=== PATIENT | female | born 1970 | race Caucasian/White ===

== ENCOUNTER 2017-10-25 22:00 | Emergency (ER) | payer BC ==
[2017-10-25] MEDS: HYDROCODONE/APAP (5/325) TAB PO (23:01)
[2017-10-25] MEDS: DIPHTH/TET/ACEL PERTUSS (ADULT) 0.5 ML VIAL IM (23:03)
== END 2017-10-26 00:48 | disposition home or self-care (01) ==
LOC: FTE 10-26 00:48
DX: S01.01XA Laceration without foreign body of scalp, initial encounter (principal); W19.XXXA Unspecified fall, initial encounter; Y92.9 Unspecified place or not applicable
CPT/HCPCS: 12001; 70450; 90471; 90715; 99284-25

== ENCOUNTER 2017-10-27 09:16 | Emergency (ER) | payer BC | END 2017-10-27 10:51 | disposition home or self-care (01) | LOC: FTE 09:16 | DX: Z48.01 Encounter for change or removal of surgical wound dressing (principal) | CPT/HCPCS: 99281; Z7502 ==

== ENCOUNTER 2017-11-03 15:17 | Emergency (ER) | payer BC | END 2017-11-03 15:55 | disposition home or self-care (01) | LOC: E/R 15:55 | DX: Z48.02 Encounter for removal of sutures (principal) | CPT/HCPCS: 99281; Z7502 ==

== ENCOUNTER 2018-12-16 08:39 | Day surgery (SDC) | payer BC ==
[2018-12-16] MEDS ORDERED: LIDOCAINE 4% SOLUTION 50 ML BTL (10:08)
[2018-12-16] MEDS ORDERED: MIDAZOLAM 1 MG/ML 2 ML INJ ×3 (11:11)
[2018-12-16] MEDS ORDERED: FENTAnyl 50 MCG/ML VIAL (11:11)
== END 2018-12-16 12:57 | disposition home or self-care (01) ==
LOC: GIL 08:39
DX: Z12.11 Encounter for screening for malignant neoplasm of colon (principal); K29.50 Unspecified chronic gastritis without bleeding; K64.4 Residual hemorrhoidal skin tags
CPT/HCPCS: 43239; 88305; 88312